=== PATIENT | male | born 1965 | race Hispanic/Latino ===

== ENCOUNTER 2017-06-15 00:39 | Inpatient (IN) | payer BC ==
[2017-06-15 00:46] VITALS: BMI 43.2
[2017-06-15] MEDS ORDERED: Sodium Chloride 0.9% 1,000 ML IV ONE ×2 (00:50→02:00)
--- NOTE | 2017-06-15 00:57 | C.PDOC ---
History Of Present Illness as per , pt has been having fever since friday, been sleeping all day, This morning became more confused. Put can lysol in the refrigerator. Condition deteriorates since 3 pm. Pt has history of niddm and htn and non compliant with his meds. No trauma. All history from as pt does not speak or follow commands, but moves all extremities Time Seen by Provider: 06/15/17 00:48 Chief Complaint (Nursing): Altered Mental Status History Per: Family History/Exam Limitations: Clinical Condition Onset/Duration Of Symptoms: Days (1) Onset Of Symptoms: Other (06/14/17) Current Symptoms Are (Timing): Still Present Usual Baseline: Alert Oriented Exacerbating Factor(s): Fever, Diabetic Use Of Anticoag/Antiplatelets: No Speech Is: Other (non verbal( does not answer questions)) Decreased Ability To: Stand, Walk Severity: Severe Recent travel outside of the [place]: No Additional History Per: Family Associated Symptoms: Fever, Chills, Disoriented Past Medical History Reviewed: Historical Data, Nursing Documentation, Vital Signs Vital Signs: Last Vital Signs Temp 98.4 F 06/15/17 05:07 Pulse 91 H 06/15/17 05:41 Resp 20 06/15/17 05:41 BP 165/73 H 06/15/17 05:41 Pulse Ox 95 06/15/17 05:41 - Medical History PMH: HTN Family History: States: No Known Family Hx - Social History Hx Alcohol Use: No Hx Substance Use: No Review Of Systems Review Of Systems: ROS cannot be obtained secondary to pt's inabilty to answer questions. Physical Exam - Physical Exam Appears: In Acute Distress Skin: Warm, Pale Head: Atraumatic, Normacephalic Eye(s): bilateral: Normal Inspection Oral Mucosa: Moist Neck: Supple Chest: Symmetrical Cardiovascular: Rhythm Regular Respiratory: No Rales, Rhonchi, No Wheezing Gastrointestinal/Abdominal: Soft, No Tenderness, No Guarding, Other (obese) Back: Normal Inspection Extremity: Normal ROM Extremity: Bilateral: Atraumatic, Normal Color And Temperature, Normal ROM Pulses: Left Dorsalis Pedis: Normal, Right Dorsalis Pedis: Normal Neurological/Psych: Other (does not answer questions, moves all extremities) Pain Response: Withdraws With Pain Disoriented To: Person, Place, Time, Situation Gait: Unable To Assess ED Course And Treatment - Laboratory Results Result Diagrams: 06/15/17 01:21 06/15/17 00:50 ECG: Interpreted By Me, Viewed By Me ECG Rhythm: Sinus Rhythm (101), Nonspecific Changes O2 Sat by Pulse Oximetry: 90 Pulse Ox Interpretation: Abnormal - Radiology CXR: Interpreted by Me, Viewed By Me CXR Interpretation: No: Infiltrates, Fracture, Pnemothorax Progress Note: 1:50 am pt now becoming more arousable. answering questions. 2: [address] ware(icu) will come and see the pt in the ed. 2:[address] alvarez - neuro - not a tpa candidate Critical Care Time - Critical Care Note Total Time (in mins): 30 Documented critical care: time excludes all time spent performing seperately billable procedures. NIHSS Stroke Scale - Date/Time Evaluation Performed Date Performed: 06/15/17 Time Performed: 00:46 When Was NIHSS Performed: Baseline - How Severe is the Stoke Level of Consciousness: 1=Drowsy LOC to Questions: 2=Neither correct LOC to commands: 2=Neither correct Best Gaze: 0=Normal Visual: 0=No visual loss Facial: 0=Normal Motor Arm - Left: 0=No drift Motor Arm - Right: 0=No drift Motor Leg - Left: 0=No drift Motor Leg - Right: 0=No drift Limb Ataxia: 0=Absent Sensory: 0=Normal Best Language: 2=Severe aphasia Dysarthia: 2=Severe, near unintelligible or worse Extinction & Inattention (Neglect): 0=Normal, no object Score: 9 Severity Of Stroke: 5-15= Moderate Stroke Disposition Discussed With : Rick Perez Comment: accepted the pt on her service and took over the care at 2:25 AM Doctor Will See Patient In The: ED Counseled Patient/Family Regarding: Studies Performed, Diagnosis - Disposition Disposition: HOSPITALIZED Disposition Time: 00:54 Condition: CRITICAL - POA Present On Arrival: Poor Glycemic Control - Clinical Impression Clinical Impression: Change in mental status, Influenza A, Hyperglycemia, Hyperpyrexia Decision To Admit - Pt Status Changed To: Hospital Disposition Of: Inpatient - Admit Certification Admit to Inpatient:: After my assessment, the patient will require hospitalization for at least two midnights. This is because of the severity of symptoms shown, intensity of services needed, and/or the medical risk in this patient being treated as an outpatient. - InPatient: Physician Admission Certification:: After my assessment, the patient will require hospitalization for at least two midnights. This is because of the severity of symptoms shown, intensity of services needed, and/or the medical risk in this patient being treated as an outpatient. - . Bed Request Type: ICU Admitting Physician: Rick Perez Patient Diagnosis: Change in mental status, Influenza A, Hyperglycemia, Hyperpyrexia
[2017-06-15] MEDS ORDERED: cefTRIAXone IV 1 gm in Dextros 50 ML IVPB ONE (01:01)
[2017-06-15] MEDS ORDERED: Iodixanol 320 MG/ML 100 ML BOTTLE IV ONE (01:01)
[2017-06-15 01:02] LABS: VENOUS BLOOD GAS BASE EXCESS -4.5 mmol/L (0.0-2.0); VENOUS BLOOD GAS PCO2 30 mmHg (40-60); VENOUS BLOOD GAS PO2 23 mm/Hg (30-55); VENOUS BLOOD PH 7.41 (7.32-7.43)
[2017-06-15] MEDS ORDERED: cefTRIAXone 2 GM in Sodium Chloride 0.9% 100 ML IVPB STA (01:02)
[2017-06-15 01:18] LABS: BASO % 0.4 % (0.0-2.0); EOS % 0.1 % (0.0-4.0); HEMOGLOBIN 14.8 g/dL (12.0-18.0); LYMPH # 0.5 K/uL (1.0-4.3); LYMPH % 5.8 % (20.0-40.0); MEAN CELL VOLUME 82.6 fL (80.0-94.0); MEAN CORPUSCULAR HEMOGLOBIN 28.7 pg (27.0-31.0); MEAN CORPUSCULAR HGB CONC 34.7 g/dL (33.0-37.0); MEAN PLATELET VOLUME 9.7 fL (7.2-11.7); MONO # 0.9 K/uL (0.0-0.8); NEUT # 6.5 K/uL (1.8-7.0); NEUT % 82.7 % (50.0-75.0); NRBC % 0.1 % (0.0-2.0); PLATELET COUNT 184 K/uL (130-400); RBC 5.15 Mil/uL (4.40-5.90); RED CELL DISTRIBUTION WIDTH 13.7 % (11.5-14.5); WHITE BLOOD COUNT 7.8 K/uL (4.8-10.8)
[2017-06-15 01:21] LABS: INR 1.4; PROTHROMBIN TIME 15.8 SECONDS (9.7-12.2)
--- NOTE | 2017-06-15 01:32 | CT ---
EXAM: CT Head Without Intravenous Contrast CLINICAL HISTORY: 52 years old, male; Signs and symptoms; Altered mental status/memory loss; Additional info: Code stroke best images pt combative during exam, kept moving TECHNIQUE: Axial computed tomography images of the head/brain without intravenous contrast. All CT scans at this facility use one or more dose reduction techniques, viz.: automated exposure control; ma/kV adjustment per patient size (including targeted exams where dose is matched to indication; i.e. head); or iterative reconstruction technique. COMPARISON: No relevant prior studies available. FINDINGS: Limitations: Motion artifact - mild. Brain: Minimal atrophy. No definite intracranial hemorrhage. No mass. No definite edema. Ventricles: No hydrocephalus. Bones/joints: No acute fracture. Soft tissues: Unremarkable. Vasculature: Minimal atherosclerotic disease of intracranial arteries. Sinuses: Scattered mild mucosal thickening. Mastoid air cells: No mastoid effusion. Orbits: Unremarkable as visualized. IMPRESSION: 1. No definite territorial infarction. Acute infarction may be CT occult within first 24 hours. If focal deficit persists, consider followup CT or MRI for further evaluation. 2. Incidental/non-acute findings are described above.
[2017-06-15] MEDS ORDERED: Vancomycin 1 gm/NS 200 ml 1 GM/200 ML BAG IVPB STA (01:37)
[2017-06-15 02:54] LABS: LYMPHOCYTE 5 % (20-40); MONOCYTE 12 % (0-10); NEUTROPHIL 83 % (50-75); PLATELET ESTIMATE NORMAL (NORMAL); TOTAL CELLS COUNTED 100
--- NOTE | 2017-06-15 03:13 | CP.PCM.CON ---
History of Present Illness - History of Present Illness History of Present Illness: 52 y/o male with h/o HTN and DM,non compliant with meds (for about 6 months) brought to ER by 911 for altered mental status.Patient had fever ,cough and sore throat for about 3 days,not eaten anything since friday lunch.He was able to walk but holding onto furniture friday afternoon. later had urinary incontinence which prompted the family to bring him to the ER. Initially in Er he was non verbal,but speaks now,knows name and that he is in the ER.CMP not resulted yet.T max in ER 104.8 Review of Systems - Review of Systems Systems not reviewed;Unavailable: Altered Mental Status - Constitutional Constitutional: Fever, Weakness - EENT Nose/Mouth/Throat: Nasal Congestion, Sore Throat - Cardiovascular Cardiovascular: absent: Chest Pain, Leg Edema - Respiratory Respiratory: Cough. absent: Dyspnea - Gastrointestinal Gastrointestinal: absent: Loose Stools, Nausea, Vomiting - Genitourinary Genitourinary: Urinary Incontinence Past Patient History - Past Medical History & Family History Past Medical History?: Yes - Past Social History Smoking Status: Heavy Smoker > 10 Cigarettes Daily Occupation: boom truck driver Drugs: Denies Home Situation {Lives}: With Family - CARDIAC Hx Hypertension: Yes - ENDOCRINE/METABOLIC Hx Diabetes Mellitus Type 2: Yes - PSYCHIATRIC Hx Substance Use: No - SURGICAL HISTORY Hx Surgeries: No Meds Allergies/Adverse Reactions: Allergies Allergy/AdvReac Type Severity Reaction Status Date / Time No Known Allergies Allergy Verified 06/15/17 00:51 Physical Exam - Constitutional Appears: No Acute Distress - Head Exam Head Exam: ATRAUMATIC, NORMAL INSPECTION, NORMOCEPHALIC - Eye Exam Eye Exam: EOMI, Normal appearance, PERRL Pupil Exam: NORMAL ACCOMODATION - ENT Exam ENT Exam: Mucous Membranes Dry, Normal External Ear Exam - Neck Exam Neck exam: Positive for: Normal Inspection - Respiratory Exam Respiratory Exam: Clear to Auscultation Bilateral, NORMAL BREATHING PATTERN. absent: Accessory Muscle Use - Cardiovascular Exam Cardiovascular Exam: REGULAR RHYTHM. absent: JVD - GI/Abdominal Exam GI & Abdominal Exam: Normal Bowel Sounds, Soft. absent: Distended, Tenderness - Extremities Exam Extremities exam: Positive for: normal inspection. Negative for: calf tenderness Additional comments: moves all extremities - Back Exam Back exam: NORMAL INSPECTION - Neurological Exam Neurological exam: Alert - Skin Skin Exam: Dry, Warm Results - Vital Signs Recent Vital Signs: Last Vital Signs Temp 104.8 F H 06/15/17 01:40 Pulse 95 H 06/15/17 02:36 Resp 18 06/15/17 02:36 BP 162/72 H 06/15/17 02:36 Pulse Ox 96 06/15/17 02:36 - Labs Result Diagrams: 06/15/17 01:21 06/15/17 00:50 Labs: Laboratory Results - last 24 hr 06/15/17 06/15/17 06/15/17 00:42 00:55 01:21 WBC 7.8 RBC 5.15 Hgb 14.8 Hct 42.6 MCV 82.6 MCH 28.7 MCHC 34.7 RDW 13.7 Plt Count 184 MPV 9.7 Neut % (Auto) 82.7 H Lymph % (Auto) 5.8 L Loup % (Auto) 11.0 H Eos % (Auto) 0.1 Baso % (Auto) 0.4 Neut # (Auto) 6.5 Lymph # (Auto) 0.5 L [place] # (Auto) 0.9 H Eos # (Auto) 0.0 Baso # (Auto) 0.0 Neutrophils % (Manual) 83 H Lymphocytes % (Manual) 5 L Monocytes % (Manual) 12 H Platelet Estimate Normal PT INR APTT pO2 23 L VBG pH 7.41 VBG pCO2 30 L VBG HCO3 19.9 VBG Total CO2 19.9 L VBG O2 Sat (Calc) 43.8 VBG Base Excess -4.5 L VBG Potassium 2.2 L* Sodium 139.0 Chloride 108.0 H Glucose 184 H Lactate 2.0 Crit Value Called To Alek castanon/rn Crit Value Called By Pineda younger/rt Crit Value Read Back Y Blood Gas Notified Time 105 POC Glucose (mg/dL) 236 H Venous Blood Potassium 2.2 L* Influenza Typ A,B (EIA) Blood Type Antibody Screen 06/15/17 06/15/17 06/15/17 01:26 01:41 02:27 WBC RBC Hgb Hct MCV MCH MCHC RDW Plt Count MPV Neut % (Auto) Lymph % (Auto) Loup % (Auto) Eos % (Auto) Baso % (Auto) Neut # (Auto) Lymph # (Auto) Loup # (Auto) Eos # (Auto) Baso # (Auto) Neutrophils % (Manual) Lymphocytes % (Manual) Monocytes % (Manual) Platelet Estimate PT 15.8 H INR 1.4 APTT 33 pO2 VBG pH VBG pCO2 VBG HCO3 VBG Total CO2 VBG O2 Sat (Calc) VBG Base Excess VBG Potassium Sodium Chloride Glucose Lactate Crit Value Called To Crit Value Called By Crit Value Read Back Blood Gas Notified Time POC Glucose (mg/dL) Venous Blood Potassium Influenza Typ A,B (EIA) Pos for influenza a H Blood Type A POSITIVE Antibody Screen Negative - EKG Data EKG Interpreted by: Myself EKG shows normal: Sinus rhythm Rate: Tachycardia - Imaging and Cardiology Chest x-ray Status: Image reviewed by me CT scan - head Status: Image reviewed by me, Report reviewed by me Assessment & Plan - Assessment and Plan (Free Text) Assessment: 1.Altered mental status/ hyperpyrexia probably secondary to dehydration and influenza improved with IVF antiviral meds 2.Influenza A-Tamiflu 3.DM non compliant with meds.Fs with coverage 4.HTN -start meds if BP remains elevated CMP pending
[2017-06-15 03:23] LABS: ALB/GLOB RATIO 1.2 (1.0-2.1); ALBUMIN 4.2 g/dL (3.5-5.0); ALT/SGPT 31 U/L (21-72); AST/SGOT 62 U/L (17-59); BLOOD UREA NITROGEN 14 mg/dL (9-20); CALCIUM 9.4 mg/dl (8.6-10.4); GFR AFRICAN-AMERICAN > 60; GFR NON-AFRICAN AMERICAN > 60; HDL CHOLESTEROL 29 mg/dL (30-70)
[2017-06-15] MEDS ORDERED: (Novolin R) Insulin Human Regular 100 units/ml vial SC SCH (03:30)
[2017-06-15 03:34] LABS: LDL CHOLESTEROL 120 mg/dL (0-129)
[2017-06-15] MEDS ORDERED: Potassium Chloride 20 mEq ER Tab PO ONE ×4 (04:00→17:37)
[2017-06-15] MEDS ORDERED: Sodium Chloride 0.45% 1,000 ML IV ONE (04:30)
[2017-06-15] MEDS: Sodium Chloride 0.45% 1,000 ML IV SCH ×2 (05:29→14:54)
[2017-06-15 05:42] LABS: VENOUS BLOOD GAS BASE EXCESS -0.3 mmol/L (0.0-2.0); VENOUS BLOOD GAS PCO2 32 mmHg (40-60); VENOUS BLOOD GAS PO2 41 mm/Hg (30-55); VENOUS BLOOD PH 7.46 (7.32-7.43)
[2017-06-15] MEDS: (Novolin R) Insulin Human Regular 100 units/ml vial SC SCH ×3 (06:45→21:45)
--- NOTE | 2017-06-15 08:59 | RAD ---
HISTORY: change ms COMPARISON: None available. TECHNIQUE: Chest, one view. FINDINGS: LUNGS: Mild to moderate pulmonary venous congestion. No focal consolidation. Please note that chest x-ray has limited sensitivity for the detection of pulmonary masses. PLEURA: No significant pleural effusion identified. No definite pneumothorax . CARDIOVASCULAR: Cardiomegaly. OSSEOUS STRUCTURES: No acute osseous abnormality identified. VISUALIZED UPPER ABDOMEN: Unremarkable. OTHER FINDINGS: None. IMPRESSION: Mild to moderate pulmonary venous congestion. Cardiomegaly.
[2017-06-15 09:28] LABS: BASO % 0.7 % (0.0-2.0); EOS % 0.2 % (0.0-4.0); HEMOGLOBIN 13.7 g/dL (12.0-18.0); LYMPH % 19.5 % (20.0-40.0); MEAN CELL VOLUME 82.7 fL (80.0-94.0); MEAN CORPUSCULAR HEMOGLOBIN 28.5 pg (27.0-31.0); MEAN CORPUSCULAR HGB CONC 34.5 g/dL (33.0-37.0); MEAN PLATELET VOLUME 9.1 fL (7.2-11.7); MONO # 0.7 K/uL (0.0-0.8); MONO % 13.2 % (0.0-10.0); NEUT # 3.5 K/uL (1.8-7.0); NEUT % 66.4 % (50.0-75.0); RBC 4.81 Mil/uL (4.40-5.90); RED CELL DISTRIBUTION WIDTH 14.2 % (11.5-14.5); WHITE BLOOD COUNT 5.2 K/uL (4.8-10.8)
[2017-06-15] MEDS ORDERED: Enoxaparin 40 mg Syringe SC SCH (10:00)
[2017-06-15] MEDS ORDERED: Pantoprazole 40 mg EC Tab PO SCH (10:00)
[2017-06-15 10:02] LABS: ALBUMIN 3.5 g/dL (3.5-5.0); ALT/SGPT 40 U/L (21-72); BLOOD UREA NITROGEN 12 mg/dL (9-20); GFR AFRICAN-AMERICAN > 60; GFR NON-AFRICAN AMERICAN > 60; MAGNESIUM 1.5 mg/dL (1.6-2.3)
[2017-06-15 10:03] LABS: AST/SGOT 79 U/L (17-59)
--- NOTE | 2017-06-15 11:43 | CP.PCM.PN ---
Subjective - Date & Time of Evaluation Date of Evaluation: 06/15/17 Time of Evaluation: 11:45 - Subjective Subjective: H&P dictated #[id number] Discharge summary dictated #[id number] Objective - Vital Signs/Intake and Output Vital Signs (last 24 hours): Temp Pulse Resp BP Pulse Ox 101.3 F H 75 23 142/65 95 06/15/17 06:00 06/15/17 11:00 06/15/17 11:00 06/15/17 10:59 06/15/17 11:00 Intake and Output: 06/15/17 06/15/17 06:59 18:59 Intake Total 350 620 Output Total 0 1250 Balance 350 -630 - Medications Medications: Current Medications Enoxaparin Sodium (Lovenox) 40 mg SC DAILY [facility] Last Admin: 06/15/17 11:01 Dose: 40 mg Sodium Chloride (Sodium Chloride 0.45%) 1,000 mls @ 100 mls/hr IV .Q10H [facility] Last Admin: 06/15/17 05:29 Dose: 100 mls/hr Insulin Human Regular (Novolin R) 0 unit SC Q6 [facility] PRN Reason: Protocol Last Admin: 06/15/17 06:45 Dose: Not Given Oseltamivir Phosphate (Tamiflu Cap) 75 mg PO BID [facility] Stop: 06/20/17 03:29 Last Admin: 06/15/17 09:48 Dose: Not Given Pantoprazole Sodium (Protonix Ec Tab) 40 mg PO DAILY [facility] Last Admin: 06/15/17 11:01 Dose: 40 mg - Labs Labs: 06/15/17 09:19 06/15/17 09:19 PT 15.8 SECONDS (9.7-12.2) H 06/15/17 01:26 INR 1.4 06/15/17 01:26 APTT 33 SECONDS (21-34) 06/15/17 01:26
[2017-06-15 12:26] LABS: SQUAMOUS EPITHIAL < 1 /hpf (0-5); URINE BACTERIA RARE (<OCC); URINE BILIRUBIN NEGATIVE (NEGATIVE); URINE BLOOD 3+ (NEGATIVE); URINE CLARITY Clear (Clear); URINE COLOR Straw (YELLOW); URINE GLUCOSE (UA) NORMAL (Normal); URINE LEUKOCYTE ESTERASE NEG Leu/uL (Negative); URINE NITRATE NEGATIVE (NEGATIVE); URINE PROTEIN 1+ mg/dL (NEGATIVE); URINE UROBILINOGEN NORMAL mg/dL (0.2-1.0)
[2017-06-15] MEDS ORDERED: Potassium Chloride 20 mEq/15 ml LIQ UD PO ONE ×2 (13:30→16:15)
[2017-06-15] MEDS: Magnesium Sulfate 1 gm in D5W 1 GM/100 ML BAG IVPB SCH ×2 (13:58→14:53)
[2017-06-15] MEDS ORDERED: Magnesium Sulfate 1 gm in D5W 1 GM/100 ML BAG IVPB SCH ×2 (15:45→18:15)
[2017-06-15] MEDS ORDERED: Magnesium Sulfate 1 gm in D5W 1 GM/100 ML BAG IVPB ONE (16:15)
--- NOTE | 2017-06-15 16:20 | CP.PCM.CON ---
History of Present Illness - History of Present Illness History of Present Illness: 52 y/o male with h/o HTN and DM,non compliant with meds (for about 6 months) brought to ER by 911 for altered mental status.Patient had fever ,cough and sore throat for about 3 days,not eaten anything since friday lunch.He was able to walk but holding onto furniture friday afternoon. later had urinary incontinence which prompted the family to bring him to the ER. Initially in Er he was non verbal,but speaks now,knows name and that he is in the ER.CMP not resulted yet.T max in ER 104.8 INFLUENZA AG + ORDERS WRITTEN Review of Systems - Review of Systems All systems: reviewed and no additional remarkable complaints except - Constitutional Constitutional: As Per HPI - EENT Eyes: absent: As Per HPI, Blind Spots, Blurred Vision, Change in Vision, Decreased Night Vision, Diplopia, Discharge, Dry Eye, Exophthalmos, Floaters, Irritation, Itchy Eyes, Loss of Peripheral Vision, Pain, Photophobia, Requires Corrective Lenses, Sees Flashes, Spots in Vision, Tunnel Vision, Other Visual Disturbances, Loss of Vision, Other Ears: absent: As Per HPI, Decreased Hearing, Ear Discharge, Ear Pain, Tinnitus, Abnormal Hearing, Disequilibrium, Dizziness, Other Nose/Mouth/Throat: absent: As Per HPI, Epistaxis, Nasal Congestion, Nasal Discharge, Nasal Obstruction, Nasal Trauma, Nose Pain, Post Nasal Drip, Sinus Pain, Sinus Pressure, Bleeding Gums, Change in Voice, Dental Pain, Dry Mouth, Dysphagia, Halitosis, Hoarsness, Lip Swelling, Mouth Lesions, Mouth Pain, Odynophagia, Sore Throat, Throat Swelling, Tongue Swelling, Facial Pain, Neck Pain, Neck Mass, Other - Cardiovascular Cardiovascular: absent: As Per HPI, Acrocyanosis, Chest Pain, Chest Pain at Rest , Chest Pain with Activity, Claudication, Diaphoresis, Dyspnea, Dyspnea on Exertion, Edema, Irregular Heart Rhythm, Pain Radiating to Arm/Neck/Jaw, Leg Edema, Leg Ulcers, Lightheadedness, Orthopnea, Palpitations, Paroxysmal Nocturnal Dyspnea, Pedal Edema, Radiating Pain, Rapid Heart Rate, Slow Heart Rate, Syncope, Other - Respiratory Respiratory: absent: As Per HPI, Cough, Dyspnea, Hemoptysis, Dyspnea on Exertion , Wheezing, Snoring, Stridor, Pain on Inspiration, Chest Congestion, Excessive Mucous Production, Change in Mucous Color, Pain with Coughing, Other - Gastrointestinal Gastrointestinal: absent: As Per HPI, Abdominal Pain, Belching, Bloating, Change in Bowel Habits, Change in Stool Character, Coffee Ground Emesis, Constipation, Cramping, Diarrhea, Dyspepsia, Dysphagia, Early Satiety, Excessive Flatus, Fecal Incontinence, Heartburn, Hematemesis, Hematochezia, Loose Stools, Melena, Nausea, Odynophagia, Temesmus, Vomiting, Other - Genitourinary Genitourinary: absent: As Per HPI, Change in Urinary Stream, Difficulty Urinating, Dysuria, Flank Pain, Hematuria, Pyuria, Nocturia, Urinary Incontinence, Urinary Frequency, Urinary Hesitance, Urinary Urgency, Voiding Freq/Small Amts, Freq UTI, Hx Renal/Bladder Calculi, Hx /Renal Surgery, Bladder Distension, Other - Musculoskeletal Musculoskeletal: absent: As Per HPI, Abnormal Gait, Arthralgias, Atrophy, Back Pain, Deformity, Joint Swelling, Limited Range of Motion, Loss of Height, Muscle Cramps, Muscle Weakness, Myalgias, Neck Pain, Numbness, Radiating Pain into Limb, Stiffness, Tingling, Other - Integumentary Integumentary: absent: As Per HPI, Acne, Alopecia, Bleeding Lesions, Change in Hair, Change in Nails, Change in Pigmentation, Changing Lesions, Dry Skin, Erythema, Furuncle, Hirsutism, Lesions, New Lesions, Non-Healing Lesions, Photosensitivity, Pruritus, Rash, Skin Pain, Skin Ulcer, Sores, Striae, Swelling , Unusual Bruising, Wounds, Jaundice, Other - Neurological Neurological: As Per HPI - Psychiatric Psychiatric: absent: As Per HPI, Abnormal Sleep Pattern, Anhedonia, Anxiety, Auditory Hallucinations, Behavioral Changes, Change in Appetite, Change in Libido, Confusion, Depression, Difficulty Concentrating, Hallucinations, Homicidal Ideation, Hopelessness, Irritability, Memory Loss, Mood Swings, Panic Attacks, Paranoia, Suicidal Ideation, Visual Hallucinations, Tactile Hallucinations, Other - Endocrine Endocrine: absent: As Per HPI, Change in Body Appearance, Change in Libido, Cold Intolorance, Deepening of Voice, Excessive Sweating, Fatigue, Flushing, Heat Intolorance, Increase in Ring/Shoe/Hat Size, Palpitations, Polydipsia, Polyphagia, Polyuria, Other - Hematologic/Lymphatic Hematologic: absent: As Per HPI, Easy Bleeding, Easy Bruising, Lymphadenopathy, Other Past Patient History - Past Medical History & Family History Past Medical History?: Yes - Past Social History Smoking Status: Never Smoked - CARDIAC Hx Hypertension: Yes - ENDOCRINE/METABOLIC Hx Diabetes Mellitus Type 2: Yes - MUSCULOSKELETAL/RHEUMATOLOGICAL Hx Falls: No - PSYCHIATRIC Hx Substance Use: No - SURGICAL HISTORY Hx Surgeries: No - ANESTHESIA Hx Anesthesia: No Hx Anesthesia Reactions: No Hx Malignant Hyperthermia: No Has any member of the family had a problem w/ anesthesia?: No Meds Allergies/Adverse Reactions: Allergies Allergy/AdvReac Type Severity Reaction Status Date / Time No Known Allergies Allergy Verified 06/15/17 00:51 - Medications Medications: Current Medications Enoxaparin Sodium (Lovenox) 40 mg SC DAILY COUNT INCLUDES [facility] Last Admin: 06/15/17 11:01 Dose: 40 mg Sodium Chloride (Sodium Chloride 0.45%) 1,000 mls @ 100 mls/hr IV .Q10H COUNT INCLUDES THE [facility] Last Admin: 06/15/17 14:54 Dose: 100 mls/hr Magnesium Sulfate/Dextrose (Magnesium Sulfate 1 Gm/100 Ml D5w) 1 gm in 100 mls @ 200 mls/hr IVPB ONCE ONE Stop: 06/15/17 16:44 Insulin Human Regular (Novolin R) 0 unit SC Q6 COUNT INCLUDES THE [facility] PRN Reason: Protocol Last Admin: 06/15/17 14:17 Dose: Not Given Oseltamivir Phosphate (Tamiflu Cap) 75 mg PO BID COUNT INCLUDES THE [facility] Stop: 06/20/17 03:29 Last Admin: 06/15/17 09:48 Dose: Not Given Pantoprazole Sodium (Protonix Ec Tab) 40 mg PO DAILY COUNT INCLUDES THE [facility] Last Admin: 06/15/17 11:01 Dose: 40 mg Physical Exam - Constitutional Appears: Non-toxic, Chronically Ill - Head Exam Head Exam: NORMOCEPHALIC - Eye Exam Eye Exam: PERRL. absent: Scleral icterus - ENT Exam ENT Exam: Mucous Membranes Dry, Normal External Ear Exam - Neck Exam Neck exam: Negative for: Lymphadenopathy - Respiratory Exam Respiratory Exam: Decreased Breath Sounds - Cardiovascular Exam Cardiovascular Exam: REGULAR RHYTHM - GI/Abdominal Exam GI & Abdominal Exam: Diminished Bowel Sounds, Soft. absent: Tenderness - Rectal Exam Rectal Exam: Deferred - Exam Exam: NORMAL INSPECTION - Extremities Exam Extremities exam: Positive for: pedal pulses present. Negative for: calf tenderness, pedal edema, tenderness - Back Exam Back exam: absent: CVA tenderness (L), CVA tenderness (R) - Neurological Exam Neurological exam: Alert, CN II-XII Intact, Oriented x3, Reflexes Normal - Psychiatric Exam Psychiatric exam: Normal Mood - Skin Skin Exam: Dry, Intact Results - Vital Signs Recent Vital Signs: Last Vital Signs Temp 97.6 F 06/15/17 12:00 Pulse 75 06/15/17 11:00 Resp 23 06/15/17 11:00 BP 142/65 06/15/17 10:59 Pulse Ox 95 06/15/17 11:00 - Labs Result Diagrams: 06/15/17 09:19 06/15/17 09:19 Labs: Laboratory Results - last 24 hr 06/15/17 06/15/17 06/15/17 00:42 00:50 00:55 WBC RBC Hgb Hct MCV MCH MCHC RDW Plt Count MPV Neut % (Auto) Lymph % (Auto) [place] % (Auto) Eos % (Auto) Baso % (Auto) Neut # (Auto) Lymph # (Auto) [place] # (Auto) Eos # (Auto) Baso # (Auto) Neutrophils % (Manual) Lymphocytes % (Manual) Monocytes % (Manual) Platelet Estimate PT INR APTT pO2 23 L VBG pH 7.41 VBG pCO2 30 L VBG HCO3 19.9 VBG Total CO2 19.9 L VBG O2 Sat (Calc) 43.8 VBG Base Excess -4.5 L VBG Potassium 2.2 L* Glucose 184 H Lactate 2.0 Crit Value Called To Alek castanon/rn Crit Value Called By Pineda younger/rt Crit Value Read Back Y Blood Gas Notified Time 105 Sodium 133 139.0 Potassium 3.3 L Chloride 96 L 108.0 H Carbon Dioxide 23 Anion Gap 17 BUN 14 Creatinine 1.2 Est GFR ( Amer) > 60 Est GFR (Non-Af Amer) > 60 POC Glucose (mg/dL) 236 H Random Glucose 225 H Hemoglobin A1c Calcium 9.4 Phosphorus Magnesium Total Bilirubin 0.7 AST 62 H ALT 31 Alkaline Phosphatase 96 Troponin I 0.0400 Total Protein 7.8 Albumin 4.2 Globulin 3.6 Albumin/Globulin Ratio 1.2 Triglycerides 89 Cholesterol 170 LDL Cholesterol Direct 120 HDL Cholesterol 29 L Venous Blood Potassium 2.2 L* Urine Color Urine Clarity Urine pH Ur Specific [place] Urine Protein Urine Glucose (UA) Urine Ketones Urine Blood Urine Nitrate Urine Bilirubin Urine Urobilinogen Ur Leukocyte Esterase Urine WBC (Auto) Urine RBC (Auto) Ur Squamous Epith Cells Urine Bacteria Influenza Typ A,B (EIA) Blood Type Antibody Screen 06/15/17 06/15/17 06/15/17 01:04 01:21 01:26 WBC 7.8 RBC 5.15 Hgb 14.8 Hct 42.6 MCV 82.6 MCH 28.7 MCHC 34.7 RDW 13.7 Plt Count 184 MPV 9.7 Neut % (Auto) 82.7 H Lymph % (Auto) 5.8 L [place] % (Auto) 11.0 H Eos % (Auto) 0.1 Baso % (Auto) 0.4 Neut # (Auto) 6.5 Lymph # (Auto) 0.5 L [place] # (Auto) 0.9 H Eos # (Auto) 0.0 Baso # (Auto) 0.0 Neutrophils % (Manual) 83 H Lymphocytes % (Manual) 5 L Monocytes % (Manual) 12 H Platelet Estimate Normal PT 15.8 H INR 1.4 APTT 33 pO2 VBG pH VBG pCO2 VBG HCO3 VBG Total CO2 VBG O2 Sat (Calc) VBG Base Excess VBG Potassium Glucose Lactate Crit Value Called To Crit Value Called By Crit Value Read Back Blood Gas Notified Time Sodium Potassium Chloride Carbon Dioxide Anion Gap BUN Creatinine Est GFR ( Amer) Est GFR (Non-Af Amer) POC Glucose (mg/dL) Random Glucose Hemoglobin A1c 10.0 H Calcium Phosphorus Magnesium Total Bilirubin AST ALT Alkaline Phosphatase Troponin I Total Protein Albumin Globulin Albumin/Globulin Ratio Triglycerides Cholesterol LDL Cholesterol Direct HDL Cholesterol Venous Blood Potassium Urine Color Urine Clarity Urine pH Ur Specific [place] Urine Protein Urine Glucose (UA) Urine Ketones Urine Blood Urine Nitrate Urine Bilirubin Urine Urobilinogen Ur Leukocyte Esterase Urine WBC (Auto) Urine RBC (Auto) Ur Squamous Epith Cells Urine Bacteria Influenza Typ A,B (EIA) Blood Type Antibody Screen 06/15/17 06/15/17 06/15/17 01:41 02:27 05:39 WBC RBC Hgb Hct MCV MCH MCHC RDW Plt Count MPV Neut % (Auto) Lymph % (Auto) [place] % (Auto) Eos % (Auto) Baso % (Auto) Neut # (Auto) Lymph # (Auto) [place] # (Auto) Eos # (Auto) Baso # (Auto) Neutrophils % (Manual) Lymphocytes % (Manual) Monocytes % (Manual) Platelet Estimate PT INR APTT pO2 41 VBG pH 7.46 H VBG pCO2 32 L VBG HCO3 24.2 VBG Total CO2 23.8 VBG O2 Sat (Calc) 85.4 H VBG Base Excess -0.3 L VBG Potassium 2.8 L Glucose 158 H Lactate 1.1 Crit Value Called To Crit Value Called By Crit Value Read Back Blood Gas Notified Time Sodium 133.0 Potassium Chloride 106.0 Carbon Dioxide Anion Gap BUN Creatinine Est GFR ( Amer) Est GFR (Non-Af Amer) POC Glucose (mg/dL) Random Glucose Hemoglobin A1c Calcium Phosphorus Magnesium Total Bilirubin AST ALT Alkaline Phosphatase Troponin I Total Protein Albumin Globulin Albumin/Globulin Ratio Triglycerides Cholesterol LDL Cholesterol Direct HDL Cholesterol Venous Blood Potassium 2.8 L Urine Color Urine Clarity Urine pH Ur Specific [place] Urine Protein Urine Glucose (UA) Urine Ketones Urine Blood Urine Nitrate Urine Bilirubin Urine Urobilinogen Ur Leukocyte Esterase Urine WBC (Auto) Urine RBC (Auto) Ur Squamous Epith Cells Urine Bacteria Influenza Typ A,B (EIA) Pos for influenza a H Blood Type A POSITIVE Antibody Screen Negative 06/15/17 06/15/17 06/15/17 06:23 09:19 09:19 WBC 5.2 RBC 4.81 Hgb 13.7 Hct 39.7 MCV 82.7 MCH 28.5 MCHC 34.5 RDW 14.2 Plt Count 158 MPV 9.1 Neut % (Auto) 66.4 Lymph % (Auto) 19.5 L [place] % (Auto) 13.2 H Eos % (Auto) 0.2 Baso % (Auto) 0.7 Neut # (Auto) 3.5 Lymph # (Auto) 1.0 [place] # (Auto) 0.7 Eos # (Auto) 0.0 Baso # (Auto) 0.0 Neutrophils % (Manual) Lymphocytes % (Manual) Monocytes % (Manual) Platelet Estimate PT INR APTT pO2 VBG pH VBG pCO2 VBG HCO3 VBG Total CO2 VBG O2 Sat (Calc) VBG Base Excess VBG Potassium Glucose Lactate Crit Value Called To Crit Value Called By Crit Value Read Back Blood Gas Notified Time Sodium 134 Potassium 3.2 L Chloride 100 Carbon Dioxide 22 Anion Gap 15 BUN 12 Creatinine 0.9 Est GFR ( Amer) > 60 Est GFR (Non-Af Amer) > 60 POC Glucose (mg/dL) 149 H Random Glucose 153 H Hemoglobin A1c Calcium 8.0 L Phosphorus 4.7 H Magnesium 1.5 L Total Bilirubin 0.6 AST 79 H D ALT 40 Alkaline Phosphatase 79 Troponin I Total Protein 7.0 Albumin 3.5 Globulin 3.5 Albumin/Globulin Ratio 1.0 Triglycerides Cholesterol LDL Cholesterol Direct HDL Cholesterol Venous Blood Potassium Urine Color Urine Clarity Urine pH Ur Specific [place] Urine Protein Urine Glucose (UA) Urine Ketones Urine Blood Urine Nitrate Urine Bilirubin Urine Urobilinogen Ur Leukocyte Esterase Urine WBC (Auto) Urine RBC (Auto) Ur Squamous Epith Cells Urine Bacteria Influenza Typ A,B (EIA) Blood Type Antibody Screen 06/15/17 06/15/17 12:05 14:14 WBC RBC Hgb Hct MCV MCH MCHC RDW Plt Count MPV Neut % (Auto) Lymph % (Auto) [place] % (Auto) Eos % (Auto) Baso % (Auto) Neut # (Auto) Lymph # (Auto) [place] # (Auto) Eos # (Auto) Baso # (Auto) Neutrophils % (Manual) Lymphocytes % (Manual) Monocytes % (Manual) Platelet Estimate PT INR APTT pO2 VBG pH VBG pCO2 VBG HCO3 VBG Total CO2 VBG O2 Sat (Calc) VBG Base Excess VBG Potassium Glucose Lactate Crit Value Called To Crit Value Called By Crit Value Read Back Blood Gas Notified Time Sodium Potassium Chloride Carbon Dioxide Anion Gap BUN Creatinine Est GFR ( Amer) Est GFR (Non-Af Amer) POC Glucose (mg/dL) 173 H Random Glucose Hemoglobin A1c Calcium Phosphorus Magnesium Total Bilirubin AST ALT Alkaline Phosphatase Troponin I Total Protein Albumin Globulin Albumin/Globulin Ratio Triglycerides Cholesterol LDL Cholesterol Direct HDL Cholesterol Venous Blood Potassium Urine Color Straw Urine Clarity Clear Urine pH 6.0 Ur Specific [place] 1.008 Urine Protein 1+ H Urine Glucose (UA) Normal Urine Ketones Trace Urine Blood 3+ H Urine Nitrate Negative Urine Bilirubin Negative Urine Urobilinogen Normal Ur Leukocyte Esterase Neg Urine WBC (Auto) 1 Urine RBC (Auto) 1 Ur Squamous Epith Cells < 1 Urine Bacteria Rare Influenza Typ A,B (EIA) Blood Type Antibody Screen Assessment & Plan (1) Change in mental status Status: Acute (2) Hyperpyrexia Status: Acute (3) Influenza A Status: Acute - Assessment and Plan (Free Text) Assessment: AMS LIKELY TRANSITORY / TOXIC- METABOLIC- RESOLVED CONT TAMIFLU Plan: CONT GLYCEMIC CONTROL
--- NOTE | 2017-06-15 18:29 | CP.PCM.PN ---
Subjective - Date & Time of Evaluation Date of Evaluation: 06/15/17 Time of Evaluation: 18:17 - Subjective Subjective: No acute events overnight. not on pressors, sleeping comfortably Objective - Vital Signs/Intake and Output Vital Signs (last 24 hours): Temp Pulse Resp BP Pulse Ox 98.1 F 75 23 142/65 95 06/15/17 16:00 06/15/17 11:00 06/15/17 11:00 06/15/17 10:59 06/15/17 11:00 Intake and Output: 06/15/17 06/15/17 06:59 18:59 Intake Total 350 1120 Output Total 0 1550 Balance 350 -430 - Medications Medications: Current Medications Enoxaparin Sodium (Lovenox) 40 mg SC DAILY [facility] Last Admin: 06/15/17 11:01 Dose: 40 mg Sodium Chloride (Sodium Chloride 0.45%) 1,000 mls @ 100 mls/hr IV .Q10H [facility] Last Admin: 06/15/17 14:54 Dose: 100 mls/hr Ceftriaxone Sodium 1 gm/ (Sodium Chloride) 100 mls @ 100 mls/hr IVPB Q24H [facility] Magnesium Sulfate/Dextrose (Magnesium Sulfate 1 Gm/100 Ml D5w) 1 gm in 100 mls @ 300 mls/hr IVPB Q30M [facility] Stop: 06/15/17 19:04 Insulin Human Regular (Novolin R) 0 unit SC ACHS [facility] PRN Reason: Protocol Oseltamivir Phosphate (Tamiflu Cap) 75 mg PO BID [facility] Stop: 06/20/17 03:29 Last Admin: 06/15/17 18:16 Dose: 75 mg Pantoprazole Sodium (Protonix Ec Tab) 40 mg PO DAILY [facility] Last Admin: 06/15/17 11:01 Dose: 40 mg - Labs Labs: 06/15/17 09:19 06/15/17 09:19 PT 15.8 SECONDS (9.7-12.2) H 06/15/17 01:26 INR 1.4 06/15/17 01:26 APTT 33 SECONDS (21-34) 06/15/17 01:26 - Constitutional Appears: Well - Head Exam Head Exam: ATRAUMATIC, NORMAL INSPECTION - Eye Exam Eye Exam: EOMI - ENT Exam ENT Exam: Mucous Membranes Moist - Respiratory Exam Respiratory Exam: Clear to Ausculation Bilateral. absent: Rales, Rhonchi - Cardiovascular Exam Cardiovascular Exam: +S1, +S2, +S4, Murmur Assessment and Plan - Assessment and Plan (Free Text) Assessment: URTI: Infleunza (+) -droplet precautions -advised to stay away from smoking. -Patient will benefit from Cardiology eval and endocrinoloist evaluation. -Patient is not critical and can be downgraded.
[2017-06-15] MEDS ORDERED: Sodium Chloride 0.45% 1,000 ML IV SCH (21:15)
--- NOTE | 2017-06-16 01:49 | HP ---
CHIEF COMPLAINT: Altered mental status with 2-day history of fevers, sore throat, body aches and cough. HISTORY OF PRESENT ILLNESS: Mr. Madera is a 52-year-old male with past medical history of hypertension, diabetes mellitus, noncompliance with medication, not on any medication, not following up with any primary, came into the ED with complaints of fever for 2 days associated with cough, sore throat, body aches, and the patient's noticed him to be sleeping all day, but he became more confused yesterday morning he put the Lizol can in the refrigerator and appeared more confused and not speaking or following any commands at which point patient was brought into the emergency room. In the ED, the patient was also found to be confused, not responding, and a workup was done, which was positive for flu and the patient is being admitted. When I examined, patient is more alert, awake, and oriented, able to give more detailed history. Denies any headache, dizziness. Denies any chest pain, shortness of breath or wheezing. Denies any nausea, vomiting, abdominal pain, diarrhea, or constipation, but complaining of body aches and asking when he would be discharged. Denies any other neurologic symptoms. Denies any other neurologic deficits. PAST MEDICAL HISTORY: Hypertension, diabetes mellitus. FAMILY HISTORY: Diabetes mellitus in the mother and father from anal cancer. PERSONAL HISTORY: He is , having 2 children. Working as a logging truck driver. SOCIAL HISTORY: He smokes one pack per day for more than 30 years. Denies any alcohol or drugs. ALLERGIES: NO KNOWN DRUG ALLERGIES. MEDICATIONS: None at home. PAST SURGICAL HISTORY: Denies any past surgical history. REVIEW OF SYSTEMS: As described in the history of present illness. All other systems reviewed and were found to be negative. PHYSICAL EXAMINATION: GENERAL: Middle aged, moderately obese male, lying in bed in no acute distress. VITAL SIGNS: Blood pressure 142/65, his blood pressures were running high last night in the ED 185/81, respirations 20, temperature 97.6 degrees Fahrenheit, O2 saturations 95% on room air in the ED, T-max was 104.8, pulse 75. HEENT: Pupils equal, round, and reacting to light and accommodation. Extraocular muscles intact. No icterus. No pallor. No oral thrush. Positive pharyngeal congestion. NECK: Supple. No JVD. No thyromegaly. CHEST: equally bilaterally on respirations. Lungs, bilateral vesicular breath sounds. No wheezing. No rhonchi. CVS: S1, S2 present. Regular. ABDOMEN: Soft. Nontender. Bowel sounds are present. No guarding. No rigidity. No rebound tenderness noted. THERAPEUTIC SPECIALIST: Alert, awake, oriented x 3. No focal deficits noted. EXTREMITIES: No edema. Palpable peripheral pulses. LABORATORY DATA: Labs done from the ED, WBC 7.8, hemoglobin 14.8, hematocrit 42.6, platelets 184, PT 15.8, INR 1.4, PTT 33. ABG on room air pH 7.46, pO2 41, pCO2 of 32. Sodium 133, potassium 3.3, chloride 96, bicarbonate 23, BUN 14, creatinine 1.2, glucose 236, 225. Hemoglobin A1c 10, calcium 9.4, phosphorus 4.7, magnesium 1.5, AST 62, ALT 31, alkaline phosphatase 96, troponin 0.04, total protein 7.8, albumin 4.2, cholesterol 170, LDL 120, HDL 29, triglycerides 89. UA: specific gravity 1.008, pH 6.0, protein 1+, ketones 3+, influenza A positive. Chest x-ray; [id number] pulmonary venous congestion. CT head negative for any acute changes. EKG showed sinus tachycardia at 101 beats per minute, possible left atrial enlargement and incomplete right bundle branch block. ASSESSMENT: Middle-aged obese male with history of hypertension, diabetes mellitus, noncompliant with medications, admitted for acute altered mental status, fevers, influenza A positive and the patient is being admitted for further management. 1. Influenza A positive. 2. Status post altered mental status probably secondary to high fever. 3. Hypokalemia. 4. Hypomagnesemia. 5. Hypertension. 6. Uncontrolled diabetes mellitus. PLAN: The patient is being admitted to ICU. The patient is clinically improving, started on IV fluids and Tamiflu. I will give Tylenol as needed. Accu-Chek q. a.c. and at bedtime. The patient received vancomycin and Rocephin in the ED. We will continue with IV fluids. We will monitor blood pressure closely, start antihypertensives and hypoglycemics when patient is more stable. Potassium is being supplemented. Give 1 gm of magnesium sulfate. Repeat labs in a.m. Check CPK level. ID consult and Neurology consult requested. Discussed with Neurology. We will add further recommendation as his clinical course progresses. Rick Perez MD
[2017-06-16] MEDS ORDERED: Sodium Chloride 0.45% 1,000 ML IV SCH (02:09)
[2017-06-16 06:01] VITALS: BP 156/54; RESP 24; O2SAT 92
[2017-06-16 06:50] LABS: BASO % 0.5 % (0.0-2.0); EOS % 0.2 % (0.0-4.0); HEMOGLOBIN 13.6 g/dL (12.0-18.0); LYMPH # 0.7 K/uL (1.0-4.3); LYMPH % 15.3 % (20.0-40.0); MEAN CELL VOLUME 83.4 fL (80.0-94.0); MEAN CORPUSCULAR HEMOGLOBIN 28.3 pg (27.0-31.0); MEAN PLATELET VOLUME 9.9 fL (7.2-11.7); MONO # 0.7 K/uL (0.0-0.8); MONO % 15.4 % (0.0-10.0); NEUT # 3.1 K/uL (1.8-7.0); NEUT % 68.6 % (50.0-75.0); NRBC % 0.1 % (0.0-2.0); RBC 4.79 Mil/uL (4.40-5.90); WHITE BLOOD COUNT 4.5 K/uL (4.8-10.8)
[2017-06-16 07:07] LABS: ALBUMIN 3.6 g/dL (3.5-5.0); ALT/SGPT 54 U/L (21-72); AST/SGOT 145 U/L (17-59); BLOOD UREA NITROGEN 11 mg/dL (9-20); GFR AFRICAN-AMERICAN > 60; GFR NON-AFRICAN AMERICAN > 60
[2017-06-16] MEDS: (Novolin R) Insulin Human Regular 100 units/ml vial SC SCH (07:30)
[2017-06-16 08:08] LABS: HEPATITIS B SURFACE AG Negative (NEGATIVE)
[2017-06-16 08:14] LABS: HEPATITIS A IGM NEGATIVE (NEGATIVE); HEPATITIS B CORE AB NEGATIVE (NEGATIVE)
[2017-06-16 08:25] LABS: HEPATITIS C ANTIBODY NEGATIVE (NEGATIVE)
[2017-06-16 13:23] VITALS: PULSE 91
[2017-06-16 13:28] VITALS: TEMP 99.3
--- NOTE | 2017-06-16 21:17 | CARD ---
APPROVED REPORT EKG Measurement Heart [id number] <Conclusion> Sinus tachycardia Possible Left atrial enlargement Incomplete right bundle branch block Prolonged QT Abnormal ECG
== END 2017-06-16 13:08 | disposition left against medical advice (07) | DRG 193 ==
LOC: C.ER 00:39 → C.9I 02:24
PROVIDERS: ADMIT Internal Medicine; ATTEND Internal Medicine
DX: J10.1 Influenza due to other identified influenza virus with other respiratory manifestations (principal); J06.9 Acute upper respiratory infection, unspecified; G93.40 Encephalopathy, unspecified; E11.65 Type 2 diabetes mellitus with hyperglycemia; E86.0 Dehydration; E87.6 Hypokalemia; E83.42 Hypomagnesemia; I10 Essential (primary) hypertension; R50.81 Fever presenting with conditions classified elsewhere; R31.0 Gross hematuria; R32 Unspecified urinary incontinence; F17.210 Nicotine dependence, cigarettes, uncomplicated; E66.9 Obesity, unspecified; Z91.14 Patient's other noncompliance with medication regimen